=== PATIENT | male | born 1990 | race African-American/Black ===

== ENCOUNTER 2017-02-12 04:22 | Emergency (ER) | payer SELFPAY ==
[2017-02-12] MEDS ORDERED: AMOXicillin 250 MG CAP ONE (04:54)
[2017-02-12] MEDS ORDERED: Ketorolac Tromethamine 60 MG/2 ML VIAL ONE (04:55)
== END 2017-02-12 05:00 | disposition home or self-care (01) ==
LOC: BURERS 04:22
DX: J02.9 Acute pharyngitis, unspecified (principal); Z87.891 Personal history of nicotine dependence
CPT/HCPCS: 87081; 87430; 96372; J1885

== ENCOUNTER 2017-05-29 13:43 | Emergency (ER) | payer SELFPAY | END 2017-05-29 14:03 | disposition home or self-care (01) | LOC: BURERS 13:43 | DX: K02.9 Dental caries, unspecified (principal); Z87.891 Personal history of nicotine dependence | CPT/HCPCS: 99282 ==

== ENCOUNTER 2017-09-19 04:51 | Emergency (ER) | payer SELFPAY ==
[2017-09-19] MEDS ORDERED: Ibuprofen 800 MG TAB ONE (05:25)
[2017-09-19] MEDS ORDERED: Bacitracin Zinc 1 Packet ONE (05:51)
[2017-09-19] MEDS ORDERED: Cephalexin 500 MG CAP ONE (05:51)
--- NOTE | 2017-09-19 09:01 | RAD ---
RIGHT HAND: Three views. HISTORY: Injury to right hand. FINDINGS: Carpals appear normally aligned. Metacarpals and phalanges appear intact. On the PA view, there is a metallic density seen adjacent to the proximal third metacarpal. This is not identified on the other 2 images and may be artifactual. IMPRESSION: No acute osseous abnormality identified. POS: [facility]
== END 2017-09-19 06:05 | disposition home or self-care (01) ==
LOC: BURERS 04:51
DX: S67.192A Crushing injury of right middle finger, initial encounter (principal); S61.212A Laceration without foreign body of right middle finger without damage to nail, initial encounter; W31.9XXA Contact with unspecified machinery, initial encounter; Y92.69 Other specified industrial and construction area as the place of occurrence of the external cause; Y99.0 Civilian activity done for income or pay; Z87.891 Personal history of nicotine dependence
CPT/HCPCS: 90471

== ENCOUNTER 2018-10-13 18:36 | Emergency (ER) | payer SELFPAY ==
[2018-10-13 19:25] LABS: Bilirubin Negative (Negative); Blood, Urine Moderate (Negative); Clarity Clear (Clear); Glucose, Urine (Dipstick) Negative (Negative); Leukocyte Negative (Negative); Nitrite Negative (Negative); Protein, Urine (Dipstick) Negative (Neg-Trace); Specific Gravity, Urine 1.025 (1.005-1.030)
[2018-10-13 19:27] LABS: Bacteria/HPF Rare-Few HPF (None Seen); RBC/HPF 0-3 HPF (0-3); Squamous Epithelial 0-3 HPF (0-3); WBC/HPF 0-3 HPF (0-3)
[2018-10-13 19:35] LABS: #Basophils 0.1 thou/uL (0.0-0.2); #Eosinphils 0.1 thou/uL (0.0-0.7); #Lymphocytes 1.7 thou/uL (1.20-3.40); #Monocytes 0.9 thou/uL (0.11-0.59); #Neutrophils 10.2 thou/uL (1.40-6.50); %Basophils 0.8 % (0.0-1.0); %Eosinophils 0.9 % (0.0-10.0); %Lymphocytes 13.3 % (21.0-51.0); %Monocytes 6.7 % (0.0-10.0); %Neutrophils 78.5 % (42.0-75.0); Hemoglobin 15.3 g/dL (14.0-18.0); Mean Corpuscular Hemoglobin 30.3 pg (27.0-31.0); Mean Platelet Volume 6.5 fL (7.4-10.4); Platelet Count 232 thou/uL (130-400); RBC Distribution Width 11.5 % (11.5-14.5); Red Blood Cell (RBC) Count 5.07 mill/uL (4.70-6.10); White Blood Cell (WBC) Count 13.1 thou/uL (4.8-10.8)
[2018-10-13 19:37] LABS: ALT (SGPT) 14 U/L (8-55); AST (SGOT) 15 U/L (5-34); Albumin 4.7 g/dL (3.5-5.0); Alkaline Phosphatase 76 U/L (40-150); Anion Gap 12 mmol/L (10-20); BUN (Urea Nitrogen) 10 mg/dL (8.9-20.6); Bilirubin, Total 0.6 mg/dL (0.2-1.2); Calc. Creatinine Clearance 0 mL/min (70-130); Calcium 9.9 mg/dL (7.8-10.44); Carbon Dioxide 24 mmol/L (22-29); Chloride 108 mmol/L (98-107); Estimated GFR-MDRD Greater than 90; Globulin 3.1 g/dL (2.4-3.5); Glucose 97 mg/dL (70-105); Lipase 13 U/L (8-78); Potassium 3.8 mmol/L (3.5-5.1); Protein, Total 7.8 g/dL (6.0-8.3); Sodium 140 mmol/L (136-145)
--- NOTE | 2018-10-13 20:49 | CT ---
CT ABDOMEN AND PELVIS WITHOUT CONTRAST 10/13/[address] of the abdomen and pelvis was done for evaluation of right lower quadrant abdominal pain. A xial slices were acquired, then coronal and sagittal reconstructions were done. Lung bases are clear. The liver, spleen, pancreas, gallbladder, adrenal glands kidneys and abdominal aorta all appeared normal. There was no distention of bowel to suggest obstruction. No inflammatory changes were seen around bowel. The contrast is poor around the right lower quadrant, so it is diffic ult to see the appendix well, but what I interpret to be it is normal in size. There are no inflammat ory changes here to suggest a secondary sign of appendicitis. There is, however, some prominence of t he number and size of the mesenteric nodes. Some towards the right lower quadrant range up to 1.2 cm in size. The possibility of mesenteric adenitis is raised. There is no free air or free fluid. CT of the pelvis shows no pelvic masses, fluid collections, or inflammatory changes. IMPRESSION: Appendix seen poorly but appears normal. Findings are suggestive of mesenteric adenitis. POS: [facility]
== END 2018-10-13 20:06 | disposition home or self-care (01) ==
LOC: BURERS 18:36
DX: I88.0 Nonspecific mesenteric lymphadenitis (principal); Z87.891 Personal history of nicotine dependence
CPT/HCPCS: 74176; 80053; 81003; 81015; 83690; 85025

== ENCOUNTER 2019-04-30 15:29 | Emergency (ER) | payer SELFPAY ==
[2019-04-30] MEDS ORDERED: Fluorescein Opthalmic Strip ONE (15:41)
[2019-04-30] MEDS ORDERED: Erythromycin Base 0.5% Ophth Oint 3.5 gm Tube ONE (15:51)
== END 2019-04-30 15:55 | disposition home or self-care (01) ==
LOC: BURERS 15:29
DX: S05.02XA Injury of conjunctiva and corneal abrasion without foreign body, left eye, initial encounter (principal); F17.210 Nicotine dependence, cigarettes, uncomplicated; Y04.0XXA Assault by unarmed brawl or fight, initial encounter
CPT/HCPCS: 99283

== ENCOUNTER 2019-10-17 15:43 | Emergency (ER) | payer OTHER, SELFPAY ==
[2019-10-17] MEDS ORDERED: cefTRIAXone\\ROCEPHIN 500 MG VIAL ONE (16:34)
[2019-10-17] MEDS ORDERED: Azithromycin 250 MG TAB ONE (16:34)
[2019-10-17 16:58] LABS: Bilirubin Negative (Negative); Blood, Urine Moderate (Negative); Clarity Cloudy (Clear); Glucose, Urine (Dipstick) Negative (Negative); Leukocyte Large (Negative); Nitrite Negative (Negative); Protein, Urine (Dipstick) Negative (Neg-Trace); RBC/HPF 0-3 HPF (0-3); Renal Epithelial None Seen HPF (None Seen); Squamous Epithelial None Seen HPF (0-3); Transitional Epithelial None Seen HPF (None Seen); Urobilinogen 0.2 mg/dL (Less than 2); WBC/HPF 21-50 HPF (0-3)
[2019-10-17 16:59] LABS: Bacteria/HPF 1+ HPF (None Seen); Broad Cast None Seen LPF (None Seen); Calcium Oxalate Crystals None Seen HPF (None Seen); Cellular Cast None Seen LPF (None Seen); Epithelial Cast None Seen LPF (None Seen); Fatty Cast None Seen LPF (None Seen); Mucous/LPF 1+ LPF (<2+); Other Casts None Seen LPF (None Seen); Oval Fat Bodies/HPF None Seen HPF (None Seen); Red Blood Cell Cast None Seen LPF (None Seen); Sperm/HPF None Seen HPF (None Seen); Trichomonas/HPF None Seen HPF (None Seen); Triple Phosphate Crystal None Seen HPF (None Seen); Unclassified Crystals None Seen HPF (None Seen); Waxy Cast None Seen LPF (None Seen); White Blood Cell Cast None Seen LPF (None Seen); Yeast-Budding None Seen HPF (None Seen); Yeast-Hyphae None Seen HPF (None Seen)
[2019-10-18 21:38] LABS: Chlamydia by PCR Not Detected (NotDetected); GC by PCR DETECTED (NotDetected)
== END 2019-10-17 17:10 | disposition home or self-care (01) ==
LOC: BURERS 15:43
DX: R30.0 Dysuria (principal); R36.9 Urethral discharge, unspecified; F17.210 Nicotine dependence, cigarettes, uncomplicated; F17.220 Nicotine dependence, chewing tobacco, uncomplicated
CPT/HCPCS: 81003; 81015; 87491; 87591; 96372; 99283; J0696

== ENCOUNTER 2020-08-09 17:11 | Emergency (ER) | payer SELFPAY ==
[2020-08-09] MEDS ORDERED: diphenhydrAMINE 25 MG CAP ONE (17:40)
[2020-08-09] MEDS ORDERED: Famotidine 20 MG TAB ONE (17:40)
[2020-08-09] MEDS ORDERED: predniSONE 20 MG TAB ONE (17:40)
[2020-08-09] MEDS ORDERED: traMADol HCl 50 MG TAB ONE (17:41)
[2020-08-09] MEDS ORDERED: Metoclopramide HCl 10 MG TAB ONE (17:41)
== END 2020-08-09 19:01 | disposition home or self-care (01) ==
LOC: BURERS 17:11
DX: T63.481A Toxic effect of venom of other arthropod, accidental (unintentional), initial encounter (principal); F17.210 Nicotine dependence, cigarettes, uncomplicated; F17.220 Nicotine dependence, chewing tobacco, uncomplicated
CPT/HCPCS: 99283; J7512; Q0163

== ENCOUNTER 2021-03-03 08:29 | Emergency (ER) | payer SELFPAY ==
[2021-03-03] MEDS ORDERED: Ondansetron ODT 4 MG TAB ONE (08:57)
== END 2021-03-03 09:03 | disposition home or self-care (01) ==
LOC: BURERS 08:29
DX: R11.2 Nausea with vomiting, unspecified (principal); R50.9 Fever, unspecified; F17.210 Nicotine dependence, cigarettes, uncomplicated; F17.220 Nicotine dependence, chewing tobacco, uncomplicated; Z20.822 Contact with and (suspected) exposure to COVID-19
CPT/HCPCS: 99283; Q0162

== ENCOUNTER 2021-11-26 19:23 | Emergency (ER) | payer SELFPAY ==
[2021-11-26] MEDS ORDERED: Dexamethasone 4 MG TAB ONE (20:14)
== END 2021-11-26 20:17 | disposition home or self-care (01) ==
LOC: BURERS 19:23
DX: M94.0 Chondrocostal junction syndrome [Tietze] (principal); R07.89 Other chest pain; F17.210 Nicotine dependence, cigarettes, uncomplicated
CPT/HCPCS: 71046; 93005; J8540

== ENCOUNTER 2022-04-28 14:31 | Emergency (ER) | payer SELFPAY | END 2022-04-28 15:10 | disposition home or self-care (01) | LOC: BURERS 14:31 | DX: U07.1 COVID-19 (principal) | CPT/HCPCS: 99283 ==